=== PATIENT | female | born 1930 | race Caucasian/White ===

== ENCOUNTER 2016-09-20 10:35 | Inpatient (IN) | payer MEDICARE, OTHER ==
[~2016-09-20] VITALS: Ht 149.9 cm; Wt 59.1 kg
[2016-09-20] VITALS (8 sets, daily range): BP systolic 121–147; BP diastolic 52–74
[~2016-09-20 10:35] MED LIST: CENTRUM PO; E400400 UNIT PO; EC ASPIRIN325 MG PO; FOSAMAX70 MG PO; FOSINOPRIL40 MG PO; MECLIZINE25 MG OR; MECLIZINE25 MG PO; METOPROL TAR50 MG PO; NORVASC5 MG PO; OS-CAL 500+D PO; SIMVASTATIN40 MG PO
--- NOTE | 2016-09-20 10:40 | NUR ---
PT ARRIVES IN STABLE CONDITION VIA EMS. LEFT THIGH SECURED TO SPLINT BOARD.
--- NOTE | 2016-09-20 10:49 | NUR ---
PT DOES NOT HAVE A MEDICATION LIST AND CANNOT REMEMBER THE NAMES OF THE MEDICINES SHE TAKES.
[2016-09-20 11:02] LABS: HEMOGLOBIN 12.1 g/dl (12.0-16.0); IMMATURE GRANULOCYTES 0.5 % (0.0-1.0); MEAN CELL VOLUME 99.7 fL CALC (80.0-100.0); MEAN CORPUSCULAR HGB 30.9 pG CALC (26.0-32.0); NEUT# 4.4 thou/uL (2.00-7.15); RED BLOOD COUNT 3.91 mill/uL (4.20-5.60); RED CELL DISTRI WIDTH 13.4 % (11.5-15.5)
[2016-09-20 11:13] LABS: BILIRUBIN, TOTAL 0.6 mg/dL (0.0-1.4); CALCIUM 9.8 mg/dL (8.4-10.2); CREATININE 1.3 mg/dL (0.5-1.0); POTASSIUM 4.5 mmol/l (3.5-5.1); TOTAL PROTEIN 7.4 g/dL (6.3-8.2)
--- NOTE | 2016-09-20 11:46 | NUR ---
PATIENT RESTING PAIN5 ON 0-10 SCALE. PATIENT AWAITIG TRACTION TO BE APPLIED
[2016-09-20 12:04] LABS: URINE BILIRUBIN - DIPSTICK NEGATIVE (NEGATIVE); URINE BLOOD DIPSTICK NEGATIVE (NEGATIVE); URINE CLARITY CLEAR; URINE COLOR YELLOW; URINE GLUCOSE - DIPSTICK NEGATIVE (NEGATIVE); URINE KETONE NEGATIVE (NEGATIVE); URINE LEUK ESTERASE NEGATIVE (NEGATIVE); URINE NITRITE - DIPSTICK NEGATIVE (Negative); URINE PROTEIN - DIPSTICK NEGATIVE (NEG-TRACE); URINE UROBILINOGEN - DIPSTICK 0.2 E.U./dL (0.2)
--- NOTE | 2016-09-20 12:40 | NUR ---
PATIENT MEDICATED AND LEFT LEG PLACED IN HARE TRACTION SPLINT. PROVIDER CHECKED PLACEMENT. PATIENT STATES PAIN MUCH BETTER PAIN 3 ON 0-10 SCALE. PATIENT REMAINS NPO. PATIENT AWAITING ROOM ASSIGNMENT
--- NOTE | 2016-09-20 13:57 | NUR ---
ANASTHESIA AT BEDSIDE GETTING INFORMED CONSENT FOR PATIENTS UPCOMING SURGERY. PAIN 4 ON 0-10 SCALE. PATIENT ALERT AND ORIENTED TIMES 3
--- NOTE | 2016-09-20 14:33 | NUR ---
PATIENT RESTING AWQAITING ROOM ASSIGNMENT PATIENT REMAINS IN TRACTION AND STATES PAIN REDUCED TO 5 ON 0-10 SCALE. PATIENT REMAINS NPO
--- NOTE | 2016-09-20 15:14 | NUR ---
PATIENT RESTING WITH EYES CLOSED. FAMILY STATES PATIENT PAIN GREATLY DECREASED IN TRACTION AND HAS BEEN ABLE TO SLEEP.
--- NOTE | 2016-09-20 15:34 | NUR ---
PATIENT DEPARTING TO THE OR REPORT GIVEN TO OR
--- NOTE | 2016-09-20 20:00 | NUR ---
PT RECEIVED FROM O.R IN HER OWN BED ACCOMPANIED BY O.R STAFF. 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 PT IS ALERT TO PERSON ONLY. REORIENTED WITHOUT ANY DIFFICULTY. O2 N/C ON AT 2L. O2 SAT 100%. SKIN WARM AND DRY. RESP EVEN AND UNLABORED. LUNGS CLEAR BILAT. ABD SOFT AND NONDISTENDED WITH HYPOACTIVE BOWEL SOUNDS PRESENT. CAMILO CATH PLACED IN O.R PATENT DRAINING CLEAR YELLOW URINE. LEFT HIP AND THIGH DRESSING CLEAN,DRY AND INTACT WITH NO DRAINAGE OR BLEEDING ON DSG. STRONG PEDAL AND POPLITEAL PULSES PALPATED BILAT. BILAT FEET WARM TO TOUCH WITH GOOD CAPILLARY REFILL NOTED TO PTS TOES. SCD APPLIED TO RT LOWER EXT. INSENTIVE SPIROMETRY PLACED AND BEDSIDE AND PT INSTRUCTED REGARDING 10X/HR. IV SITE PATENT IN LEFT HAND NO REDNESS,SWELLING OR TENDENRESS AT SITE. IVF LR AT 100CC/HR. PT REPOSITIONED FOR COMFORT. PT ORIENTED TO CALL HEART. DENIES ANY PAIN OR DISCOMFORT AT THIS TIME. CALL HEART WITHIN REACH. 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 FREQUENT ROUNDS MADE.
--- NOTE | 2016-09-20 22:00 | NUR ---
PT WOKE FOR ASSESSMENT. VSS. O2 SAT 98% ON 2L N/C. RESP EVEN AND UNLABORED. PT REPOSITIONED FOR COMFORT. LEFT HIP AND LEFT THIGH DSGS CLEAN AND DRY WITH NO DRAINAGE PRESENT. STRONG PEDAL AND POPLITEAL PULSES PALPATED BILAT. IV SITE PATENT. NSS AT 100CC/HR. PT DENIES AND DISCOMFORT. FREQUENT ROUNDS MADE. CALL HEART WITHIN REACH.
--- NOTE | 2016-09-21 00:15 | NUR ---
PT RESTING IN BED WITH EYES CLOSED. VSS. RESP EVEN AND UNLABORED. O2 2L N/C. IV SITE PATENT. LEFT LEG DSG CLEAN AND DRY. STRONG PEDAL AND POPLITEAL PULSES. FREQUENT ROUNDS MADE. CALL HEART WITHIN REACH.
[2016-09-21 04:15] VITALS: BP 113/58
--- NOTE | 2016-09-21 04:22 | NUR ---
PT WOKE. RESP EVEN AND UNLABORED. O2 2L N/C. PT IS ALERT AND ORIENTED. IV SITE PATENT NSS AT 100CC/HR. CAMILO IS PATENT DRAINING CLEAR YELLOW URINE. LEFT HIP AND LEFT THIGH DSGS CLEAN AND DRY WITH NO DRAINAGE PRESENT. STRONG PEDAL PULSES PALPATED BILAT. TURNED AND REPOSITIONED FOR COMFORT. PT HAS TEMP OF 100.6. 5 BLANKETS REMOVED FROM PT AND ONLY SHEET IS ON AT THIS TIME. PT MEDICATED WITH PERCOCET 10/325MG ONE TAB P.O FOR TENDERNESS AT INCISION SITE. PT DENIES ANY NAUSEA. SCD ON RT LOWER EXT. FREQUENT ROUNDS MADE. WILL CONTINUE TO CLOSELY MONITOR. CALL HEART WITHIN REACH.
[2016-09-21 05:57] LABS: HEMATOCRIT 26.2 % (37.0-47.0); HEMOGLOBIN 8.8 g/dl (12.0-16.0); IMMATURE GRANULOCYTES 0.3 % (0.0-1.0); MEAN CELL VOLUME 93.2 fL CALC (80.0-100.0); MEAN CORPUSCULAR HGB 31.3 pG CALC (26.0-32.0); MEAN CORPUSCULAR HGB CONC 33.6 g/L CALC (32.0-36.0); NEUT# 6.31 thou/uL (2.00-7.15); RED BLOOD COUNT 2.81 mill/uL (4.20-5.60); RED CELL DISTRI WIDTH 13.4 % (11.5-15.5)
[2016-09-21 06:09] LABS: CALCIUM 8.2 mg/dL (8.4-10.2); CREATININE 1.1 mg/dL (0.5-1.0)
[2016-09-21 07:51] VITALS: BP 130/61
--- NOTE | 2016-09-21 08:00 | NUR ---
PT AROUSED EASILY TO VERBAL STIMULI; CHILKOOT; DENIES PAIN; CAMILO DRAINING CLEAR YELLOW URINE TO BEDSIDE DRAIN; CALL HEART WITHIN REACH; WILL CONTINUE TO MONITOR.
--- NOTE | 2016-09-21 08:59 | NUR ---
PT IN SUPINE POSITION; DENIES PAIN; IVF INFUSING WELL; DRSG TO LEFT HIP AREA CDI; ENCOURAGE USE OF CALL LIGHT IF ANY ASSISTANCE IS NEEDED; WILL CONTINUE TO MONITOR.
--- NOTE | 2016-09-21 10:20 | NUR ---
PHYSICAL THERAPY IN WITH PT; ASSISTED TO RECLINER, FEET ELEVATED; CALL HEART WITHIN REACH; WILL CONTINUE TO MONITOR.
--- NOTE | 2016-09-21 13:25 | NUR ---
PT WITH VISITORS AT BEDSIDE; NO COMPLAINTS VOICED; CALL HEART WITHIN REACH; WILL CONTINUE TO MONITOR.
[2016-09-21 15:16] VITALS: BP 132/79
--- NOTE | 2016-09-21 16:52 | NUR ---
PM: PATIENT SEEN FOR EX AND F.A. EX DONE FOR LEFT LE ROM AND STRENGTH INCLUDING ISOMETRICS, AA, AND A EXERCISE. WORKED WITH PATIENT ON SUPINE TO SIT TRANSFERS. SHE WAS SLIGHTLY MORE INDEP THIS PM AND DIDN'T APPEAR NERVOUS ABOUT TRYING TO MOVE. SHE APPEARED TO TOLERATE TREATMENT WELL. SHE WAS LEFT SITTING COMFORTABLE IN THE CHAIR WITH THE CALL LIGHT AND TRAY TABLE WITHIN REACH.
[2016-09-21 18:30] VITALS: BP 116/68
--- NOTE | 2016-09-21 20:18 | NUR ---
AT BEDSIDE; PT ALERT AND ORIENTED X3; VERY PLEASANT AND SMILING; TALKACTIVE ON THE PHONE; DENIES PAIN AT THIS TIME; RESP ARE EVEN AND UNLABORED; CAMILO DRAINING CLEAR YELLOW URINE; EMPTIED 1000ML AT THIS TIME; PT TOLERATING PO FLUIDS; DRSG TO LEFT FEMUR IS CLEAN DRY WITHOUT DRAINAGE NOTED; IV FLUIDS INFUSING AT RX RATE; IV SITE INTACT; SAFETY PRECAUTIONS IN PLACE; LUNGS COARSE POSTERIOR ON AUSCULTATION BILAT; CALL HEART IN PLACE; HARD TO HEAR WILL CONTINUE TO MONITOR.
--- NOTE | 2016-09-21 23:00 | NUR ---
PT RESTING IN BED WITH EYES CLOSED; VOICES NO COMPLAINTS AT THIS TIME; RESP ARE EVEN AND UNLABORED; SCD'S TO RT LEG; SKIN WARM AND DRY; X2 DRSG ON LEFT FEMUR ARE DRY AND CLEAN NO DRAINAGE NOTED; PT TOLERATING PO FLUIDS WITHOUT DIFFICULTY; WILL D'C LR INFUSION ORDERS; SAFETY MEASURES IN PLACE, WILL CONTINUE TO MONITOR.
[2016-09-21 23:54] VITALS: BP 150/61
--- NOTE | 2016-09-22 01:34 | NUR ---
PT C/O THROBING PAIN IN LEFT HIP, RATES IT AT 6/10, MEDICATED WITH PERCOCET 2 COMBO PER EMAR; REPOSITIONED FOR COMFORT; TEMP 101.0 ADJUSTED ROOM TEMP, REMOVED BLANKETS; PROVIDED A BED BATH AND APPLIED COOL WASHCLOTH ON FOREHEAD; CAMILO DRAING BY GRAVITY CLEAR YELLOW URINE; EMPTIED 300 ML AT THIS TIME; WILL CONTINUE TO MONITOR.
[2016-09-22 04:10] VITALS: BP 128/68
[2016-09-22 05:38] LABS: HEMATOCRIT 28.2 % (37.0-47.0); HEMOGLOBIN 9.3 g/dl (12.0-16.0); IMMATURE GRANULOCYTES 0.4 % (0.0-1.0); MEAN CELL VOLUME 93.4 fL CALC (80.0-100.0); MEAN CORPUSCULAR HGB 30.8 pG CALC (26.0-32.0); NEUT# 7.05 thou/uL (2.00-7.15); RED BLOOD COUNT 3.02 mill/uL (4.20-5.60); RED CELL DISTRI WIDTH 13.6 % (11.5-15.5)
--- NOTE | 2016-09-22 05:44 | NUR ---
PT QUIETLY RESTING IN BED WITH EYES CLOSED; VOICES NO COMPLAINTS AT THIS TIME; RESP ARE EVEN AND UNLABORED; WILL CONTINUE TO REASSESS.
[2016-09-22 05:49] LABS: ANION GAP 11 (6-22 (CALC)); BUN 15 mg/dL (8-23); BUN/CREATININE RATIO 16 (12-20 (CALC)); CALCIUM 8.4 mg/dL (8.4-10.2); CARBON DIOXIDE 26 mmol/l (22-30); CHLORIDE 105 mmol/l (95-108); CREATININE 0.9 mg/dL (0.5-1.0); GFR 60 ML/MIN (>=60 (CALC)); GFR FOR AFR.AMER. > 60 ML/MIN (>=60 (CALC)); GLUCOSE 114 mg/dL (82-115); POTASSIUM 3.9 mmol/l (3.5-5.1); SODIUM 138 mmol/l (137-146)
[2016-09-22 07:53] VITALS: BP 144/88
--- NOTE | 2016-09-22 08:30 | NUR ---
CAMILO CATH REMOVED; EMPTIED; APPROX 100 ML OF CLEAR YELLOW URINE; PT DOES NOT VOICE ANY COMPLAINTS; CALL HEART WITHIN REACH; WILL CONTINUE TO MONITOR
--- NOTE | 2016-09-22 09:55 | NUR ---
PHYSICAL THERAPY IN WITH PT
--- NOTE | 2016-09-22 10:03 | NUR ---
DR. VERNON IN TO SEE PT; PLAN OF CARE DISCUSSED
--- NOTE | 2016-09-22 10:47 | NUR ---
DRSG TO LEFT HIP REMOVED; AREA WELL, APPROX., NO REDNESS NOTED; AREA CLEANED WITH BETADINE; COVERED WITH TELFA APPLIED AND SECURED WITH TEGADERM; PT TOLERATED WELL; CALL HEART WITHIN REACH; WILL CONTINUE TO MONITOR.
--- NOTE | 2016-09-22 13:13 | NUR ---
AM: ALERT AND COOP. PT SITKA AND ARMENIAN IS HER SECOND LANGUAGE SO SPEAKING SLOW AND LOUD IS NECESSARY TO COMMUNICATE WITH HER. AMBULATED 20 FEET WITH THE ROLLING WALKER AND MIN ASSIST. VERBAL CUING FOR SAFETY ESPECIALLY DURING TRANSFERS IS NEEDED. ACTIVE, AA AND ISOMETRIC EX DONE. THERAPY WAS FOR GAIT TRAINING AND EXERCISE. SHE WAS LEFT COMFORTABLE IN THE CHAIR WITH THE CALL LIGHT AND TRAY TABLE BY HER.
--- NOTE | 2016-09-22 14:01 | NUR ---
PT WITH FAMILY IN TO VISIT; NO COMPLAINTS VOICED; CALL HEART WITHIN REACH; WILL CONTINUE TO MONITOR.
--- NOTE | 2016-09-22 15:15 | NUR ---
PHYSICAL THERAPY IN WITH PT;
[2016-09-22 15:49] VITALS: BP 151/53
--- NOTE | 2016-09-22 16:57 | NUR ---
PM; PATIENT SEEN FOR GAIT TRAINING ONLY. SHE WAS ABLE TO TRANSFER FROM SUPINE TO SIT WITH CUING ONLY. GAIT DONE WITH ROLLING WALKER. ENDURANCE WAS 20 FEET AND PATIENT C/O OF FEELING VERY WEAK AND TIRED. THERAPIST ASSISTED HER INTO BED AND NURSING CALLED PATIENT WAS PALE. BP WAS HIGH AND PO2 WAS DOWN TO 80%. PATIENT WAS PLACED ON 02 AND PO2 STARTED RISING SLOWLY. SHE WAS LEFT COMFORTABLE IN THE BED BEING MONITERED BY THE NURSING STAFF. SHE SAID SHE FELT BETTER AND COLOR WAS IMPROVING.
[2016-09-22 19:00] VITALS: BP 128/75
--- NOTE | 2016-09-22 20:25 | NUR ---
OOB TO BSC WITH ONE PERSON ASSISTANCE VOIDING CLEAR YELLOW URINE, BACK TO BED C/O PAIN TO LEFT HIP 08/12, MEDICATED WITH PERCOCET. IS VERY [place]. TEACHING DONE WITH PT REGARDING EMS SITE NEEDING TO BE CHANGE, PT REFUSES, STATES HOPES TO BE DISCHARGED IN AM. CALL LIGHT IN REACH, WILL CONTINUE TO MONITOR.
--- NOTE | 2016-09-23 | NUR ---
OOB TO BSC VOIDING 200ML OF YELLOW URINE, BACK TO BED. CALL LIGHT IN REACH, DENIES NEED FOR PAIN MEDS.
[2016-09-23 00:10] VITALS: BP 131/67
[2016-09-23 04:30] VITALS: BP 146/56
--- NOTE | 2016-09-23 06:00 | NUR ---
MORNING BLOOD WORK DRAWN BY IRRIGATION FOREMAN, PT TOLERATED WELL. DENIES PAIN.
[2016-09-23 06:13] LABS: HEMATOCRIT 28.1 % (37.0-47.0); HEMOGLOBIN 9.3 g/dl (12.0-16.0); IMMATURE GRANULOCYTES 0.4 % (0.0-1.0); MEAN CELL VOLUME 93.7 fL CALC (80.0-100.0); MEAN CORPUSCULAR HGB CONC 33.1 g/L CALC (32.0-36.0); NEUT# 6.2 thou/uL (2.00-7.15); RED CELL DISTRI WIDTH 13.5 % (11.5-15.5)
[2016-09-23 06:32] LABS: ANION GAP 12 (6-22 (CALC)); BUN 19 mg/dL (8-23); BUN/CREATININE RATIO 20 (12-20 (CALC)); CALCIUM 8.9 mg/dL (8.4-10.2); CARBON DIOXIDE 28 mmol/l (22-30); CHLORIDE 104 mmol/l (95-108); CREATININE 0.9 mg/dL (0.5-1.0); GFR 60 ML/MIN (>=60 (CALC)); GFR FOR AFR.AMER. > 60 ML/MIN (>=60 (CALC)); GLUCOSE 99 mg/dL (82-115); POTASSIUM 3.9 mmol/l (3.5-5.1); SODIUM 140 mmol/l (137-146)
[2016-09-23 09:00] VITALS: BP 155/69
--- NOTE | 2016-09-23 11:04 | NUR ---
PT WAS SEEN RESTING IN THE BED WITH A FAMILY ON BEDSIDE. PT WAS TAUGHT BED EX. SUCH QUAD SETS, HIP FLEXION AND ABDUCTION ROM EX. PT TRANSFERRED FROM SUPINE TO SHORT SITTING WITH MIN A OF 1. SIT TO STAND WITH MIN A OF 1 AND VERBAL CUES. SPO2 WAS 90-95% ALTHROUGHOUT THE ACTIVITIES. PT AMBULATED W/WALKER AND CGA W/ GAITBELT FROM BED TO THE RECLINER AND BACK TO BED, ALSO DID BED TO COMMODE ON BEDSIDE WITH WALKER AND CGA. INSTRUCTED ON PROPER USAGE OF WALKER. NRSNG WAS ADVISED THAT PT WAS IN THE COMMODE. LEFT PT WITH A FAMILY. REINFORCED FALL PRECAUTIONS AND INSTRUCTED TO WAIT FOR THE NRSNG TO BE TRANSFERRED BACK TO BED. NO ADVERSE RXNS NOTED OR REPORTED AT THE END OF TX.
[2016-09-23] MEDS ORDERED: PERCOCET 10/31 COMBO PO (12:15)
[2016-09-23] MEDS ORDERED: XARELTO10 MG PO (12:15)
[2016-09-23] MEDS ORDERED: SURFAK240 MG/CAP PO (12:15)
[2016-09-23] MEDS ORDERED: GLYCOLAX3350 N1 PO (12:15)
[2016-09-23] MEDS ORDERED: ADLT ASA LOW81 MG PO (12:15)
--- NOTE | 2016-09-23 13:04 | NUR ---
Pt seen this pm for treatment. She was in chair with visitors at bed side. Pt stood with CGA and verbal cues ambulated x 25 with standard walker and verbal cues. She performed 20 reps of sitting and supine ex (A/AAROM). Sit to supine required assist of LEs. Compression re connected and pt positioned properly with extra blankets secondary to c/o being cold. Call denise and phone in reach. Gait belt and non skid socks in place during treatment.
--- NOTE | 2016-09-23 16:52 | NUR ---
REPORT CALLED TO [facility]
--- NOTE | 2016-09-23 16:53 | NUR ---
Discharge instructions given. Patient verbalizes understanding of same. Discharged in stable condition via [facility] with *Other. All belongings sent with pt.
== END 2016-09-23 16:50 | DRG 482 ==
LOC: ED 10:35 → ED-I 11:21 → ED 11:53 → MS2 11:54
PROVIDERS: Emergency Medicine; ADMIT Internal Medicine; ATTEND Internal Medicine
PROC: 0QS906Z Reposition Left Femoral Shaft with Intramedullary Internal Fixation Device, Open Approach (ICD-10-PCS; principal; 2016-09-20)
DX: S72.302A Unspecified fracture of shaft of left femur, initial encounter for closed fracture (principal); N18.3 Chronic kidney disease, stage 3 (moderate); I12.9 Hypertensive chronic kidney disease with stage 1 through stage 4 chronic kidney disease, or unspecified chronic kidney disease; E78.5 Hyperlipidemia, unspecified; I25.10 Atherosclerotic heart disease of native coronary artery without angina pectoris; H91.90 Unspecified hearing loss, unspecified ear; M19.90 Unspecified osteoarthritis, unspecified site; M81.0 Age-related osteoporosis without current pathological fracture; W01.0XXA Fall on same level from slipping, tripping and stumbling without subsequent striking against object, initial encounter; Y92.009 Unspecified place in unspecified non-institutional (private) residence as the place of occurrence of the external cause; Z98.61 Coronary angioplasty status
CPT/HCPCS: J1650

== ENCOUNTER 2021-04-23 10:54 | Emergency (ER) | payer MEDICARE, OTHER ==
[~2021-04-23] VITALS: Ht 149.9 cm; Wt 59.1 kg
[~2021-04-23 10:54] MED LIST changes: +ADLT ASA LOW81 MG PO; +GLYCOLAX3350 N1 PO; +PERCOCET 10/31 COMBO PO; +SURFAK240 MG/CAP PO; +XARELTO10 MG PO
[2021-04-23] MEDS ORDERED: NAPROXEN500 MG PO (12:49)
[2021-04-23 12:53] VITALS: BP 150/76
== END 2021-04-23 12:58 | disposition home or self-care (01) ==
LOC: ED 10:54
DX: S83.91XA Sprain of unspecified site of right knee, initial encounter (principal); S53.401A Unspecified sprain of right elbow, initial encounter; S50.311A Abrasion of right elbow, initial encounter; S60.511A Abrasion of right hand, initial encounter; S70.211A Abrasion, right hip, initial encounter; S80.211A Abrasion, right knee, initial encounter; S60.512A Abrasion of left hand, initial encounter; I10 Essential (primary) hypertension; E78.5 Hyperlipidemia, unspecified; W01.0XXA Fall on same level from slipping, tripping and stumbling without subsequent striking against object, initial encounter; Y92.89 Other specified places as the place of occurrence of the external cause